=== PATIENT | female | born 1950 | race Caucasian/White ===

== ENCOUNTER 2025-10-11 16:44 | Emergency (ER) | payer SELFPAY ==
[2025-10-11] VITALS (18 sets, daily range): BP systolic 136–156; BP diastolic 55–62; PULSE 66–71; RESP 12–20; TEMP 36.6–36.9; O2SAT 98–100
--- NOTE | ~2025-10-11 | XR_ITS ---
EXAMINATION: XR chest 1V portable DATE: 10/11/2025 17:20 INDICATION: Chest pain. PICC line verification TECHNIQUE: A single frontal view of the chest was obtained. COMPARISON: None. FINDINGS: Mild cardiomegaly. Severe atherosclerotic aorta. Lungs are clear of acute processes. PICC line place through the left upper arm is noted with the tip at the confluence of brachiocephalic veins with the superior vena cava. IMPRESSION: 1. Appropriate positioning of the PICC line, at the junction of brachiocephalic veins and superior vena cava. 2. No acute pulmonary findings. Reviewed, dictated and finalized at location [facility]
--- NOTE | 2025-10-11 16:51 | ECG_ITS ---
Test Date: 2025-10-11 17:01:23 Measurements Intervals [employer] Rate: 68 P: 50 AR: 150 QRS: -31 QRSD: 102 T: 66 QT: 421 QTc: 448 Interpretive Statements SINUS RHYTHM LEFT AXIS DEVIATION DELAYED PRECORDIAL R/S TRANSITION BORDERLINE ECG No previous ECG available for comparison Electronically Signed On 10-11-2025 19:57:20 MACHINE ASSISTANT by Elfego Martinez D.O.
--- NOTE | 2025-10-11 18:15 | ED_ITS ---
HPI - Chest Pain General Chief Complaint: Recheck/Abnormal Lab/Rx <Jazlyn Kenny PA-C - Last Filed: 10/12/25 03:22> Stated Complaint: CP <Jazlyn Kenny PA-C - Last Filed: 10/12/25 03:22> Time Seen by Provider: 10/11/25 17:04 <Jazlyn Kenny PA-C - Last Filed: 10/12/25 03:22> Source: patient, family and EMS <Jazlyn Kenny PA-C - Last Filed: 10/12/25 03:22> Mode of arrival: EMS <Jazlyn Kenny PA-C - Last Filed: 10/12/25 03:22> Limitations: dementia <Jazlyn Kenny PA-C - Last Filed: 10/12/25 03:22> History of Present Illness HPI narrative: This is a 75 year old female that presents to the ER for reports of chest pain. Patient with history of dementia. Has no complaints currently. Recently discharged from another hospital, on IV antibiotics for a wound on her sacrum. Daughter reports she had complained of chest pain, feeling like her arm was tingling. No known history of CAD. <Jazlyn Kenny PA-C - Last Filed: 10/12/25 03:22> Related Data Allergies/Adverse Reactions: Allergies Allergy/AdvReac Type Severity Reaction Status Date / Time No Known Allergies Allergy Verified 10/11/25 16:52 <Jazlyn Kenny PA-C - Last Filed: 10/12/25 03:22> Review of Systems 2 Review of Systems: ROS unobtainable: Yes unobtainable due to mental status <Jazlyn Kenny PA-C - Last Filed: 10/12/25 03:22> PMFSH Past Medical History Medical History: Medical History (Updated 10/12/25 @ 01:21 by Jazlyn Kenny PA-C) Dementia Hypertension Diabetes mellitus <Jazlyn Kenny PA-C - Last Filed: 10/12/25 03:22> Exam 2 Narrative: GENERAL: Well-appearing, well-nourished, and in no acute distress. HEAD: Normocephalic, atraumatic. EYES: EOMI. ENT: Nares clear, no rhinorrhea or epistaxis. Mucous membranes moist. Oropharynx without tonsillar hypertrophy exudate or other lesions. CHEST: Clear to auscultation. No respiratory distress. No wheezes rales or rhonchi HEART: Regular rate and rhythm. No murmur heard. Normal peripheral pulses. EXTREMITIES: Decreased active ROM in the legs. No edema. SKIN: Warm, dry, no rash. Large sacral decubitus ulcer that is packed, no surrounding erythema, or abnormal drainage NEURO: Alert and oriented x1. PSYCH: Normal mood and affect <Jazlyn Kenny PA-C - Last Filed: 10/12/25 03:22> Course Course Emergency Course: Patient's family are refusing to take patient back to her facility, they feel she is not safe there, will consult care coordination in the morning for placement <Jazlyn Kenny PA-C - Last Filed: 10/12/25 03:22> AUTISM TUTOR/PA Physician Supervision This visit was performed by both a physician and an APC. I performed all aspects of the MDM as documented. <Anton Schofield MD - Last Filed: 10/12/25 19:44> Consultations Hospitalist: Time of Consult: 12:30 <Jazlyn Kenny PA-C - Last Filed: 10/12/25 03:22> I have discussed the care of this patient with the following provider: Dr. Prince, declines admission, feels patient should be transferred back <Jazlyn Kenny PA-C - Last Filed: 10/12/25 03:22> Vital Signs Vital signs: Vital Signs Temperature 98.5 F 10/11/25 16:44 Pulse Rate 69 10/11/25 16:44 Respiratory Rate 18 10/11/25 16:44 Blood Pressure 142/55 H 10/11/25 16:44 Pulse Oximetry 100 10/11/25 16:44 Temperature 98 F 10/11/25 20:47 Pulse Rate 78 10/12/25 14:20 Respiratory Rate 16 10/12/25 14:20 Blood Pressure 156/72 H 10/12/25 14:20 Pulse Oximetry 95 10/12/25 14:20 <Jazlyn Kenny PA-C - Last Filed: 10/12/25 03:22> Vital Signs Temperature 98.5 F 10/11/25 16:44 Pulse Rate 69 10/11/25 16:44 Respiratory Rate 18 10/11/25 16:44 Blood Pressure 142/55 H 10/11/25 16:44 Pulse Oximetry 100 10/11/25 16:44 Temperature 98 F 10/11/25 20:47 Pulse Rate 78 10/12/25 14:20 Respiratory Rate 16 10/12/25 14:20 Blood Pressure 156/72 H 10/12/25 14:20 Pulse Oximetry 95 10/12/25 14:20 <Anton Schofield MD - Last Filed: 10/12/25 19:44> Vital Signs Temperature 98.5 F 10/11/25 16:44 Pulse Rate 69 10/11/25 16:44 Respiratory Rate 18 10/11/25 16:44 Blood Pressure 142/55 H 10/11/25 16:44 Pulse Oximetry 100 10/11/25 16:44 Temperature 98 F 10/11/25 20:47 Pulse Rate 78 10/12/25 14:20 Respiratory Rate 16 10/12/25 14:20 Blood Pressure 156/72 H 10/12/25 14:20 Pulse Oximetry 95 10/12/25 14:20 <Eloy Bingham MD - Last Filed: 10/12/25 13:33> Transfer Transfered to: [facility] (hospitalist at [facility] declines transfer, feel patient can be worked up further outpatient) <Jazlyn Kenny PA-C - Last Filed: 10/12/25 03:22> [facility] Differential Diagnosis Differential Diagnosis: ACS, pneumonia, pneumothorax <Anton Schofield MD - Last Filed: 10/12/25 19:44> Medical Records I have reviewed the following patient records and this information was taken into consideration when formulating the assessment and plan.: previous hospitalizations <Jazlyn Kenny PA-C - Last Filed: 10/12/25 03:22> Lab Data [facility] Lab Attestation statement: I personally reviewed the patient's lab results. <Jazlyn Kenny PA-C - Last Filed: 10/12/25 03:22> Result diagrams: 10/11/25 18:38 10/11/25 18:38 <Jazlyn Kenny PA-C - Last Filed: 10/12/25 03:22> Labs: Lab Results 10/11/25 10/11/25 10/12/25 Range/Units 18:38 22:29 01:04 WBC 11.1 H (4.5-10.0) K/mm3 RBC 2.83 L (4.2-5.4) M/mm3 Hgb 7.6 L (12.0-15.0) g/dL Hct 24.8 L (37.0-47.0) % MCV 87.6 (80-100) fl MCH 26.9 (26-34) pg MCHC 30.6 L (32-36) g/dl RDW 18.7 H (11.5-14.5) % Plt Count 348 (150-375) k/mm3 MPV 9.7 (7.4-10.4) fl Immature Gran % (Auto) 1.7 H (0-0.5) % Neut % (Auto) 71.4 (45.5-73.1) % Lymph % (Auto) 16.8 L (18.3-44.2) % [place] % (Auto) 8.3 (2.6-8.5) % Eos % (Auto) 1.2 (0-4.4) % Baso % (Auto) 0.6 (0.2-1.2) % Lymph # (Auto) 1.87 (0.9-3.2) K/mm3 [place] # (Auto) 0.9 H (0.1-0.6) K/mm3 Eos # (Auto) 0.1 (0-0.3) K/mm3 Baso # (Auto) 0.1 (0.0-0.1) K/mm3 Abs Immat Gran (auto) 0.19 H (0.00-0.031) K/mm3 Absolute Neuts (auto) 8.0 H (1.3-6.7) K/mm3 Absolute Nucleated RBC 0.000 (0.0-0.012) K/mm3 Nucleated RBC % 0.0 (0.0-0.2) % PT 15.2 H (11.1-14.7) Seconds INR 1.2 APTT 38.8 H (22.3-36.8) Seconds Sodium 134 L (137-145) mmol/L Potassium 3.9 (3.4-5.0) mmol/L Chloride 114 H (98-107) mmol/L Carbon Dioxide 15 L (22-30) mmol/L Anion Gap 5 (4-12) mmol/L BUN 43 H (7-17) mg/dL Creatinine 1.27 H (0.7-1.0) mg/dL Estim Creat Clear Calc Not Reportable Estimated GFR 41 L (59 - ) Glucose 88 (65-110) mg/dL POC Capillary Glucose (65-105) mg/dl Calcium 8.5 (8.4-10.2) mg/dL Total Bilirubin 0.4 (0.2-1.3) mg/dL AST 24 (14-36) U/L ALT 16 (6-35) U/L Alkaline Phosphatase 161 H (38-126) U/L Troponin I < 0.012 < 0.012 < 0.012 (0.000-0.034) ng/mL Total Protein 6.0 L (6.3-8.2) g/dL Albumin 2.5 L (3.5-5.1) g/dL Lipase 97 (23-300) U/L 10/12/25 Range/Units 14:28 WBC (4.5-10.0) K/mm3 RBC (4.2-5.4) M/mm3 Hgb (12.0-15.0) g/dL Hct (37.0-47.0) % MCV (80-100) fl MCH (26-34) pg MCHC (32-36) g/dl RDW (11.5-14.5) % Plt Count (150-375) k/mm3 MPV (7.4-10.4) fl Immature Gran % (Auto) (0-0.5) % Neut % (Auto) (45.5-73.1) % Lymph % (Auto) (18.3-44.2) % [place] % (Auto) (2.6-8.5) % Eos % (Auto) (0-4.4) % Baso % (Auto) (0.2-1.2) % Lymph # (Auto) (0.9-3.2) K/mm3 [place] # (Auto) (0.1-0.6) K/mm3 Eos # (Auto) (0-0.3) K/mm3 Baso # (Auto) (0.0-0.1) K/mm3 Abs Immat Gran (auto) (0.00-0.031) K/mm3 Absolute Neuts (auto) (1.3-6.7) K/mm3 Absolute Nucleated RBC (0.0-0.012) K/mm3 Nucleated RBC % (0.0-0.2) % PT (11.1-14.7) Seconds INR APTT (22.3-36.8) Seconds Sodium (137-145) mmol/L Potassium (3.4-5.0) mmol/L Chloride (98-107) mmol/L Carbon Dioxide (22-30) mmol/L Anion Gap (4-12) mmol/L BUN (7-17) mg/dL Creatinine (0.7-1.0) mg/dL Estim Creat Clear Calc Estimated GFR (59 - ) Glucose (65-110) mg/dL POC Capillary Glucose 107 H (65-105) mg/dl Calcium (8.4-10.2) mg/dL Total Bilirubin (0.2-1.3) mg/dL AST (14-36) U/L ALT (6-35) U/L Alkaline Phosphatase (38-126) U/L Troponin I (0.000-0.034) ng/mL Total Protein (6.3-8.2) g/dL Albumin (3.5-5.1) g/dL Lipase (23-300) U/L <Jazlyn Kenny PA-C - Last Filed: 10/12/25 03:22> Lab Results 10/11/25 10/11/25 10/12/25 Range/Units 18:38 22:29 01:04 WBC 11.1 H (4.5-10.0) K/mm3 RBC 2.83 L (4.2-5.4) M/mm3 Hgb 7.6 L (12.0-15.0) g/dL Hct 24.8 L (37.0-47.0) % MCV 87.6 (80-100) fl MCH 26.9 (26-34) pg MCHC 30.6 L (32-36) g/dl RDW 18.7 H (11.5-14.5) % Plt Count 348 (150-375) k/mm3 MPV 9.7 (7.4-10.4) fl Immature Gran % (Auto) 1.7 H (0-0.5) % Neut % (Auto) 71.4 (45.5-73.1) % Lymph % (Auto) 16.8 L (18.3-44.2) % [place] % (Auto) 8.3 (2.6-8.5) % Eos % (Auto) 1.2 (0-4.4) % Baso % (Auto) 0.6 (0.2-1.2) % Lymph # (Auto) 1.87 (0.9-3.2) K/mm3 [place] # (Auto) 0.9 H (0.1-0.6) K/mm3 Eos # (Auto) 0.1 (0-0.3) K/mm3 Baso # (Auto) 0.1 (0.0-0.1) K/mm3 Abs Immat Gran (auto) 0.19 H (0.00-0.031) K/mm3 Absolute Neuts (auto) 8.0 H (1.3-6.7) K/mm3 Absolute Nucleated RBC 0.000 (0.0-0.012) K/mm3 Nucleated RBC % 0.0 (0.0-0.2) % PT 15.2 H (11.1-14.7) Seconds INR 1.2 APTT 38.8 H (22.3-36.8) Seconds Sodium 134 L (137-145) mmol/L Potassium 3.9 (3.4-5.0) mmol/L Chloride 114 H (98-107) mmol/L Carbon Dioxide 15 L (22-30) mmol/L Anion Gap 5 (4-12) mmol/L BUN 43 H (7-17) mg/dL Creatinine 1.27 H (0.7-1.0) mg/dL Estim Creat Clear Calc Not Reportable Estimated GFR 41 L (59 - ) Glucose 88 (65-110) mg/dL POC Capillary Glucose (65-105) mg/dl Calcium 8.5 (8.4-10.2) mg/dL Total Bilirubin 0.4 (0.2-1.3) mg/dL AST 24 (14-36) U/L ALT 16 (6-35) U/L Alkaline Phosphatase 161 H (38-126) U/L Troponin I < 0.012 < 0.012 < 0.012 (0.000-0.034) ng/mL Total Protein 6.0 L (6.3-8.2) g/dL Albumin 2.5 L (3.5-5.1) g/dL Lipase 97 (23-300) U/L 10/12/25 Range/Units 14:28 WBC (4.5-10.0) K/mm3 RBC (4.2-5.4) M/mm3 Hgb (12.0-15.0) g/dL Hct (37.0-47.0) % MCV (80-100) fl MCH (26-34) pg MCHC (32-36) g/dl RDW (11.5-14.5) % Plt Count (150-375) k/mm3 MPV (7.4-10.4) fl Immature Gran % (Auto) (0-0.5) % Neut % (Auto) (45.5-73.1) % Lymph % (Auto) (18.3-44.2) % [place] % (Auto) (2.6-8.5) % Eos % (Auto) (0-4.4) % Baso % (Auto) (0.2-1.2) % Lymph # (Auto) (0.9-3.2) K/mm3 [place] # (Auto) (0.1-0.6) K/mm3 Eos # (Auto) (0-0.3) K/mm3 Baso # (Auto) (0.0-0.1) K/mm3 Abs Immat Gran (auto) (0.00-0.031) K/mm3 Absolute Neuts (auto) (1.3-6.7) K/mm3 Absolute Nucleated RBC (0.0-0.012) K/mm3 Nucleated RBC % (0.0-0.2) % PT (11.1-14.7) Seconds INR APTT (22.3-36.8) Seconds Sodium (137-145) mmol/L Potassium (3.4-5.0) mmol/L Chloride (98-107) mmol/L Carbon Dioxide (22-30) mmol/L Anion Gap (4-12) mmol/L BUN (7-17) mg/dL Creatinine (0.7-1.0) mg/dL Estim Creat Clear Calc Estimated GFR (59 - ) Glucose (65-110) mg/dL POC Capillary Glucose 107 H (65-105) mg/dl Calcium (8.4-10.2) mg/dL Total Bilirubin (0.2-1.3) mg/dL AST (14-36) U/L ALT (6-35) U/L Alkaline Phosphatase (38-126) U/L Troponin I (0.000-0.034) ng/mL Total Protein (6.3-8.2) g/dL Albumin (3.5-5.1) g/dL Lipase (23-300) U/L <Anton Schofield MD - Last Filed: 10/12/25 19:44> Lab Results 10/11/25 10/11/25 10/12/25 Range/Units 18:38 22:29 01:04 WBC 11.1 H (4.5-10.0) K/mm3 RBC 2.83 L (4.2-5.4) M/mm3 Hgb 7.6 L (12.0-15.0) g/dL Hct 24.8 L (37.0-47.0) % MCV 87.6 (80-100) fl MCH 26.9 (26-34) pg MCHC 30.6 L (32-36) g/dl RDW 18.7 H (11.5-14.5) % Plt Count 348 (150-375) k/mm3 MPV 9.7 (7.4-10.4) fl Immature Gran % (Auto) 1.7 H (0-0.5) % Neut % (Auto) 71.4 (45.5-73.1) % Lymph % (Auto) 16.8 L (18.3-44.2) % [place] % (Auto) 8.3 (2.6-8.5) % Eos % (Auto) 1.2 (0-4.4) % Baso % (Auto) 0.6 (0.2-1.2) % Lymph # (Auto) 1.87 (0.9-3.2) K/mm3 [place] # (Auto) 0.9 H (0.1-0.6) K/mm3 Eos # (Auto) 0.1 (0-0.3) K/mm3 Baso # (Auto) 0.1 (0.0-0.1) K/mm3 Abs Immat Gran (auto) 0.19 H (0.00-0.031) K/mm3 Absolute Neuts (auto) 8.0 H (1.3-6.7) K/mm3 Absolute Nucleated RBC 0.000 (0.0-0.012) K/mm3 Nucleated RBC % 0.0 (0.0-0.2) % PT 15.2 H (11.1-14.7) Seconds INR 1.2 APTT 38.8 H (22.3-36.8) Seconds Sodium 134 L (137-145) mmol/L Potassium 3.9 (3.4-5.0) mmol/L Chloride 114 H (98-107) mmol/L Carbon Dioxide 15 L (22-30) mmol/L Anion Gap 5 (4-12) mmol/L BUN 43 H (7-17) mg/dL Creatinine 1.27 H (0.7-1.0) mg/dL Estim Creat Clear Calc Not Reportable Estimated GFR 41 L (59 - ) Glucose 88 (65-110) mg/dL POC Capillary Glucose (65-105) mg/dl Calcium 8.5 (8.4-10.2) mg/dL Total Bilirubin 0.4 (0.2-1.3) mg/dL AST 24 (14-36) U/L ALT 16 (6-35) U/L Alkaline Phosphatase 161 H (38-126) U/L Troponin I < 0.012 < 0.012 < 0.012 (0.000-0.034) ng/mL Total Protein 6.0 L (6.3-8.2) g/dL Albumin 2.5 L (3.5-5.1) g/dL Lipase 97 (23-300) U/L 10/12/25 Range/Units 14:28 WBC (4.5-10.0) K/mm3 RBC (4.2-5.4) M/mm3 Hgb (12.0-15.0) g/dL Hct (37.0-47.0) % MCV (80-100) fl MCH (26-34) pg MCHC (32-36) g/dl RDW (11.5-14.5) % Plt Count (150-375) k/mm3 MPV (7.4-10.4) fl Immature Gran % (Auto) (0-0.5) % Neut % (Auto) (45.5-73.1) % Lymph % (Auto) (18.3-44.2) % [place] % (Auto) (2.6-8.5) % Eos % (Auto) (0-4.4) % Baso % (Auto) (0.2-1.2) % Lymph # (Auto) (0.9-3.2) K/mm3 [place] # (Auto) (0.1-0.6) K/mm3 Eos # (Auto) (0-0.3) K/mm3 Baso # (Auto) (0.0-0.1) K/mm3 Abs Immat Gran (auto) (0.00-0.031) K/mm3 Absolute Neuts (auto) (1.3-6.7) K/mm3 Absolute Nucleated RBC (0.0-0.012) K/mm3 Nucleated RBC % (0.0-0.2) % PT (11.1-14.7) Seconds INR APTT (22.3-36.8) Seconds Sodium (137-145) mmol/L Potassium (3.4-5.0) mmol/L Chloride (98-107) mmol/L Carbon Dioxide (22-30) mmol/L Anion Gap (4-12) mmol/L BUN (7-17) mg/dL Creatinine (0.7-1.0) mg/dL Estim Creat Clear Calc Estimated GFR (59 - ) Glucose (65-110) mg/dL POC Capillary Glucose 107 H (65-105) mg/dl Calcium (8.4-10.2) mg/dL Total Bilirubin (0.2-1.3) mg/dL AST (14-36) U/L ALT (6-35) U/L Alkaline Phosphatase (38-126) U/L Troponin I (0.000-0.034) ng/mL Total Protein (6.3-8.2) g/dL Albumin (3.5-5.1) g/dL Lipase (23-300) U/L <Eloy Bingham MD - Last Filed: 10/12/25 13:33> Imaging Data Radiologist's impression: ITS Impressions Chest X-Ray 10/11/25 17:22 IMPRESSION: 1. Appropriate positioning of the PICC line, at the junction of brachiocephalic veins and superior vena cava. 2. No acute pulmonary findings. <Jazlyn Kenny PA-C - Last Filed: 10/12/25 03:22> ITS Impressions Chest X-Ray 10/11/25 17:22 IMPRESSION: 1. Appropriate positioning of the PICC line, at the junction of brachiocephalic veins and superior vena cava. 2. No acute pulmonary findings. <Anton Schofield MD - Last Filed: 10/12/25 19:44> ITS Impressions Chest X-Ray 10/11/25 17:22 IMPRESSION: 1. Appropriate positioning of the PICC line, at the junction of brachiocephalic veins and superior vena cava. 2. No acute pulmonary findings. <Eloy Bingham MD - Last Filed: 10/12/25 13:33> ECG Data EKG #1: ECG completion date: 10/11/25 <Jazlyn Kenny PA-C - Last Filed: 10/12/25 03:22> normal rate, sinus rhythm, no ST changes and normal QT <Jazlyn Kenny PA-C - Last Filed: 10/12/25 03:22> Critical Care Time Critical Care Time Critical Care Time: No <Jazlyn Kenny PA-C - Last Filed: 10/12/25 03:22> Discharge Plan Discharge Clinical Impression: Chest pain Qualifiers: Chest pain type: unspecified Qualified Code(s): R07.9 - Chest pain, unspecified Anemia Qualifiers: Anemia type: unspecified type Qualified Code(s): D64.9 - Anemia, unspecified Decubitus ulcer of sacral region Qualifiers: Pressure injury stage: pressure injury of deep tissue Qualified Code(s): L 89.156 - Pressure-induced deep tissue damage of sacral region <Jazlyn Kenny PA-C - Last Filed: 10/12/25 03:22> Patient Disposition: NH Fpc/Asst Living <Jazlyn Kenny PA-C - Last Filed: 10/12/25 03:22> Condition: Stable <Jazlyn Kenny PA-C - Last Filed: 10/12/25 03:22> Instructions: Chest Pain (ED), Anemia (ED), Chronic Wounds (ED) <Jazlyn Kenny PA-C - Last Filed: 10/12/25 03:22> Additional Instructions: Return to the emergency department if you experience fever, worsening chest pain, shortness of breath, or any other symptoms that are concerning to you. Follow up with your primary care doctor and care coordination at your facility <Jazlyn Kenny PA-C - Last Filed: 10/12/25 03:22> Patient Language: Maldivian <Jazlyn Kenny PA-C - Last Filed: 10/12/25 03:22> Follow-up/Referrals: UNKNOWN,DOCTOR [Primary Care Provider] <Jazlyn Kenny PA-C - Last Filed: 10/12/25 03:22> Stand Alone Forms: Penitentiary Discharge <Jazlyn Kenny PA-C - Last Filed: 10/12/25 03:22> Time of Disposition: 13:33 <Jazlyn Kenny PA-C - Last Filed: 10/12/25 03:22> 13:33 <Anton Schofield MD - Last Filed: 10/12/25 19:44> 13:33 <Eloy Bingham MD - Last Filed: 10/12/25 13:33> Quality HEART score for chest pain patients History: slightly suspicious <Jazlyn Kenny PA-C - Last Filed: 10/12/25 03:22> ECG: normal <Jazlyn Kenny PA-C - Last Filed: 10/12/25 03:22> Age: > or = to 65 years <Jazlyn Kenny PA-C - Last Filed: 10/12/25 03:22> Risk factors: 1 or 2 risk factors <Jazlyn Kenny PA-C - Last Filed: 10/12/25 03:22> Troponin: < or = to 1x normal limit <aJzlyn Kenny PA-C - Last Filed: 10/12/25 03:22> Heart score: 3 <Jazlyn Kenny PA-C - Last Filed: 10/12/25 03:22> 3 <Anton Schofield MD - Last Filed: 10/12/25 19:44> 3 <Eloy Bingham MD - Last Filed: 10/12/25 13:33>
[2025-10-11 19:00] LABS: Hematocrit 24.8 % (37.0-47.0); Hemoglobin 7.6 g/dL (12.0-15.0); Immature Granulocyte Percent A 1.7 % (0-0.5); Lymphocytes Absolute Auto 1.87 K/mm3 (0.9-3.2); Mean Corpuscular HGB Conc 30.6 g/dl (32-36); Mean Corpuscular Hemoglobin 26.9 pg (26-34); Mean Corpuscular Volume 87.6 fl (80-100); Nucleated Red Blood Cells Absolute Auto 0.000 K/mm3 (0.0-0.012); Nucleated Red Blood Cells Perc 0.0 % (0.0-0.2); Platelet Count Result 348 k/mm3 (150-375); Red Blood Count 2.83 M/mm3 (4.2-5.4); White Blood Count 11.1 K/mm3 (4.5-10.0)
[2025-10-11 19:16] LABS: Alanine Aminotransferase 16 U/L (6-35); Albumin Level 2.5 g/dL (3.5-5.1); Alkaline Phosphatase 161 U/L (38-126); Anion Gap 5 mmol/L (4-12); Aspartate Amino Transferase 24 U/L (14-36); Bilirubin,Total 0.4 mg/dL (0.2-1.3); Blood Urea Nitrogen 43 mg/dL (7-17); Calcium 8.5 mg/dL (8.4-10.2); Carbon Dioxide 15 mmol/L (22-30); Chloride 114 mmol/L (98-107); Estimated Glomerular Filt Rate 41; Glucose 88 mg/dL (65-110); Lipase 97 U/L (23-300); Potassium 3.9 mmol/L (3.4-5.0); Sodium 134 mmol/L (137-145); Total Protein 6.0 g/dL (6.3-8.2)
[2025-10-11 19:21] LABS: INR 1.2; Prothrombin Time 15.2 Seconds (11.1-14.7)
[2025-10-11 19:22] LABS: Partial Thromboplastin Time 38.8 Seconds (22.3-36.8)
[2025-10-11 19:23] LABS: Troponin I < 0.012 ng/mL (0.000-0.034)
[2025-10-11] MEDS: oxyCODONE HCL (*CRX) 5 MG TAB IR PO (20:01)
[2025-10-11] MEDS: CEFEPIME 2 GM in SODIUM CHLORIDE 0.9% IV 50 ML 100 ML IVPB (20:39)
--- NOTE | 2025-10-11 22:30 | ECG_ITS ---
Test Date: 2025-10-11 22:33:57 Measurements Intervals [place] Rate: 73 P: 36 CT: 140 QRS: -23 QRSD: 96 T: 64 QT: 408 QTc: 451 Interpretive Statements SINUS RHYTHM DELAYED PRECORDIAL R/S TRANSITION BORDERLINE ECG Compared to ECG 10/11/2025 17:01:23 NO SIGNIFICANT CHANGE Electronically Signed On 10-12-2025 06:09:03 [employer] by Elfego Martinez D.O.
[2025-10-11 23:15] LABS: Troponin I < 0.012 ng/mL (0.000-0.034)
[2025-10-11] MEDS: ONDANSETRON INJ 4 MG/2 ML VIAL IV PUSH (23:55)
[2025-10-12] VITALS (8 sets, daily range): BP systolic 121–157; BP diastolic 52–73; PULSE 78–101; RESP 16–18; O2SAT 95–100
--- NOTE | 2025-10-12 01:18 | ECG_ITS ---
Test Date: 2025-10-12 01:21:42 Measurements Intervals [place] Rate: 79 P: 53 MT: 144 QRS: -39 QRSD: 110 T: 54 QT: 405 QTc: 466 Interpretive Statements SINUS RHYTHM LEFT AXIS DEVIATION DELAYED PRECORDIAL R/S TRANSITION BASELINE ARTIFACT- I, III, AVR, AVL, AVF, V1-V6 BORDERLINE ECG Compared to ECG 10/11/2025 22:33:57 NO SIGNIFICANT CHANGE Electronically Signed On 10-12-2025 06:09:56 [employer] [employer] by Elfego Martinez D.O.
[2025-10-12] MEDS: oxyCODONE HCL (*CRX) 5 MG TAB IR PO (01:27)
[2025-10-12 01:35] LABS: Troponin I < 0.012 ng/mL (0.000-0.034)
[2025-10-12] MEDS: Please enter patient height and weight for medication dosing 1 EACH XX (07:11)
--- NOTE | 2025-10-12 07:12 | PC.NURSE ---
Attempted to call Care Coordination for help with patient placement.
--- NOTE | 2025-10-12 07:18 | PC.NURSE ---
Per family they do not want pt to go back to [facility] home health, family made aware will need to wait for care coordination.
--- NOTE | 2025-10-12 07:28 | PC.NURSE ---
Attempted to call care coordination for help with placement.
--- NOTE | 2025-10-12 07:33 | PC.NURSE ---
Alexia, care coordination, reached. She is to discuss patient needing placement with ED coordinator, Debra.
[2025-10-12] MEDS: CEFEPIME 2 GM in SODIUM CHLORIDE 0.9% IV 50 ML 100 ML IVPB (08:20)
--- NOTE | 2025-10-12 08:22 | PC.NURSE ---
care coordination at bedside at this time to discuss POC w/ family and seek placement
[2025-10-12] MEDS: HYDROcodone/acetaminophen (*CRX) 5-325 MG TABLET 1 TAB PO ×2 (09:34→14:14)
--- NOTE | 2025-10-12 13:23 | PC.NURSE ---
Addendum entered by Lindy Ferrera RN 10/12/25 13:54: pt not on her back. pt on a wedge Original Note: this RN and Arlene Casas RN went into the pts room to reposition her and she did not want to be rolled. pt is lying in her bed on her back at this time
--- NOTE | 2025-10-12 14:17 | PC.NURSE ---
This RN attempted report to [facility] on [address]. Waited on hold for 11 minutes to speak to a nurse with no answer.
--- NOTE | 2025-10-12 14:30 | PC.NURSE ---
Pt. d/c to [facility] with PICC line in L. upper arm.
--- NOTE | 2025-10-12 14:30 | PC.NURSE ---
Bedside glucose obtained prior to pt. d/c. Glucose WNL.
--- NOTE | 2025-10-12 14:40 | PC.NURSE ---
Pure wick removed prior to pt. leaving [place] [facility]. Pt. had 1x small, brown, soft BM. Dirty depend removed. Pt. cleaned with soap and water. Clean depend applied.
--- NOTE | 2025-10-12 15:55 | PC.NURSE ---
This RN received a call back from staff at [facility]. Report provided by this RN.
--- NOTE | 2025-10-12 18:38 | PCCCNOTE ---
Was called down to ER to speak with pts 2 dtrs regarding [facility] return. Both dtrs do not want pt to return to [facility] on [address] stating it was not a good place. Pt has medicaid pending and I explained to them that their options are very limited because of this. Pt does not have medicare per dtrs has never worked except [employer] jobs. Pt was at [facility] foe a week and was just discharged last roberto to [facility]. They did not like the place and had pt brought to our ER to find other placement. The dtrs wanted me to check with [facility], [facility] , [facility] all of which said no to medicaid pending status. I informed them that their options would be either go back to [facility] or go to another [facility] in [place] or [place] since these were the only facilities that would take pt. Pt needing IV ATXS for wound for a few weeks and would not be able to set that up at home due to the IDPA pend status and Infusion companies refusing. Both dtrs agreed they were not able to sufficiently care for pt at home at this time and agreed to go vist the other [facility] facility. I instructed them time is important as pt is stable for D/C at this time. They stated they would go view it now and let me Know.CR
--- NOTE | 2025-10-12 18:50 | PCCCNOTE ---
1128-Pts Dtrs not back yet with their decision as to which facility so I called DTR Flavia and she stated she was headed there now. I again informed her that we were running out of time and was under the impression that they were going earlier to get this done and she stated she had to run errands. I explained to her that the ER was very busy with critical people waiting to be seen so therefore we would be sending her mom back to her facility she came from , Dtr req that I give her a hr to see the other place and she would call me back or be back at the [facility] in 1 hr. at 1230 I had not heard back from DTR nor was she here at the hospital. Per RN nursing technical supervisor they were calling an ambulance at 1300 to transport back to the [place] facility. I called Dtr to inform and had to leave a VM informing her of above. Again at 1255 left another VM with Dtr. 1305 pts dtr called me back and stated they wanter pt to go to the [facility] [place] facility on [address] I called Liza at [facility] [place] to confirm and she agreed pt will be coming there instead. Informed her that ambulance is set to be here at 1400 to transport Pt. Pts Dtr aware of Ambulace time of Tx also and req that we make sure all her items go with her. Pts CHIQUI Jacobs made aware and updated on plan for D/C. CR
== END 2025-10-12 15:00 ==
PROVIDERS: Emergency Medicine; Emergency Provider Physician Assistant
DX: R07.9 Chest pain, unspecified (principal); D64.9 Anemia, unspecified; L89.156 Pressure-induced deep tissue damage of sacral region; F03.90 Unspecified dementia, unspecified severity, without behavioral disturbance, psychotic disturbance, mood disturbance, and anxiety; I10 Essential (primary) hypertension; E11.9 Type 2 diabetes mellitus without complications
CPT/HCPCS: 36415; 71045; 80053; 82948; 83690; 84484; 85025; 85610; 85730; 93005; 96365; 96366; 96367; 96375; 99284; A9270; J0692; J0878; J2405